=== PATIENT | male | born 1950 | race Hispanic/Latino ===

== ENCOUNTER 2018-06-15 10:53 | Emergency (ER) | payer MEDICAID, OTHER ==
[2018-06-15] MEDS ORDERED: HYDROCODONE/ACETAMINOPHEN 10/325 MG TAB ONE (11:28)
[2018-06-15] MEDS ORDERED: KETOROLAC TROMETHAMINE 30MG/ML ONE (11:29)
== END 2018-06-15 13:20 | disposition home or self-care (01) ==
LOC: EDH 10:53
DX: S20.212A Contusion of left front wall of thorax, initial encounter (principal); S09.90XA Unspecified injury of head, initial encounter; E78.5 Hyperlipidemia, unspecified; I10 Essential (primary) hypertension; Z88.0 Allergy status to penicillin; Z87.891 Personal history of nicotine dependence; W06.XXXA Fall from bed, initial encounter; Y93.89 Activity, other specified; Y92.89 Other specified places as the place of occurrence of the external cause; Y99.8 Other external cause status
CPT/HCPCS: 70450; 71250; 99284; J1885

== ENCOUNTER 2018-11-16 22:00 | Emergency (ER) | payer OTHER ==
[2018-11-16] MEDS ORDERED: METHYLPREDNISOLONE SOD SUCC 40MG/ML 1ML ONE (22:42)
[2018-11-16] MEDS ORDERED: DiphenhydrAMINE HCL 50 MG/ML VIAL ONE (22:43)
[2018-11-16] MEDS ORDERED: FAMOTIDINE/PF 20 MG/2 ML VIAL IV ONE (22:43)
[2018-11-16 22:48] LABS: BASOPHILS % (AUTO) 0.3 % (0.0-5.0); EOSINOPHILS % (AUTO) 1.5 % (0.0-8.0); HEMATOCRIT 41.3 % (42-54); LYMPHOCYTES % (AUTO) 8.4 % (21.0-51.0); MEAN CORPUSCULAR HEMOGLOBIN 36.4 pg (27.0-33.0); MEAN CORPUSCULAR VOLUME 110.1 fL (79-99); MONOCYTES % (AUTO) 4.6 % (3.0-13.0); NEUTROPHILS % (AUTO) 85.2 % (40.0-77.0); NUCLEATED RED BLOOD CELLS 0.1 % (0.0-0.19); RED BLOOD CELL COUNT(AUTO) 3.76 MIL/uL (4.50-6.20); RED CELL DISTRIBUTION WIDTH 13.8 % (11.0-15.5); WHITE BLOOD COUNT (AUTO) 10.2 K/uL (4.8-10.8)
[2018-11-16 22:56] LABS: CREATININE 0.8 mg/dL (0.5-1.5); POTASSIUM 3.6 mmol/L (3.5-5.1)
[2018-11-16 22:57] LABS: APPEARANCE,URINE Clear (CLEAR); BILIRUBIN,URINE Negative (NEGATIVE); COLOR,URINE Yellow (YELLOW); GLUCOSE, URINE (UA) Negative (NEGATIVE); KETONES,URINE Negative (NEGATIVE); LEUKOCYTE ESTERASE ,URINE Negative (NEGATIVE); NITRATE,URINE Negative (NEGATIVE); OCCULT BLOOD,URINE Trace (NEGATIVE); PROTEIN,URINE Negative (NEGATIVE); UROBILINOGEN,URINE 0.2 mg/dL (0.2-1.0)
[2018-11-16 23:00] LABS: PLATELET COUNT (AUTO) 731 K/uL (130-400)
[2018-11-16 23:16] LABS: BACTERIA,URINE None Seen /HPF (None Seen); RBC,URINE None Seen /HPF (0-1); WBC,URINE None Seen /HPF (0-1)
== END 2018-11-17 01:07 | disposition home or self-care (01) ==
LOC: EDH 22:00
DX: T78.49XA Other allergy, initial encounter (principal); D69.1 Qualitative platelet defects; I10 Essential (primary) hypertension; Z88.0 Allergy status to penicillin; Z90.49 Acquired absence of other specified parts of digestive tract; X58.XXXA Exposure to other specified factors, initial encounter
CPT/HCPCS: 36415; 80048; 81001; 85025; 87804 ×2; 96374; 96375; 99283; J1200; J2920; J3490

== ENCOUNTER 2019-01-02 08:53 | Emergency (ER) | payer OTHER ==
[2019-01-02] MEDS ORDERED: KETOROLAC TROMETHAMINE 60 MG/2 ML VIAL ONE (09:21)
[2019-01-02] MEDS ORDERED: MORPHINE SULFATE 4 MG/1ML SYG ONE ×2 (09:22→10:31)
== END 2019-01-02 10:49 | disposition home or self-care (01) ==
LOC: EDH 08:53
DX: M54.30 Sciatica, unspecified side (principal); I10 Essential (primary) hypertension; Z90.49 Acquired absence of other specified parts of digestive tract; Z88.0 Allergy status to penicillin; Z87.891 Personal history of nicotine dependence
CPT/HCPCS: 96372 ×3; 99284; J1885; J2270 ×2

== ENCOUNTER 2024-04-13 00:28 | Inpatient (IN) | payer OTHER ==
[~2024-04-13] VITALS: Ht 170.2 cm; Wt 78.0 kg
[2024-04-13] VITALS (7 sets, daily range): BP systolic 126–131; BP diastolic 72–73; PULSE 76–94; RESP 18–24; O2SAT 98
[~2024-04-13 00:28] MED LIST: AEC81 PO; AMLO5TAB4 PO; HYDR500C2 PO
[2024-04-13 00:57] LABS: BASOPHILS # (AUTO) 0.01 K/uL (0.00-0.20); BASOPHILS % (AUTO) 0.2 % (0.0-5.0); EOSINOPHILS # (AUTO) 0.03 K/uL (0.00-0.70); EOSINOPHILS % (AUTO) 0.6 % (0.0-8.0); IMMATURE GRANULOCYTE ABSOLUTE 0.06 K/uL (0-1); LYMPHOCYTES # (AUTO) 0.4 K/uL (1.0-4.8); LYMPHOCYTES % (AUTO) 7.4 % (21.0-51.0); MEAN CORPUSCULAR HEMOGLOBIN 42.1 pg (27.0-33.0); MEAN CORPUSCULAR HGB CONC 33.9 g/dL (32.0-36.0); MEAN CORPUSCULAR VOLUME 124.1 fL (79-99); MONOCYTES # (AUTO) 0.4 K/uL (0.1-1.0); MONOCYTES % (AUTO) 8.1 % (3.0-13.0); NEUTROPHILS # (AUTO) 4.5 K/uL (1.8-7.7); NEUTROPHILS % (AUTO) 82.6 % (40.0-77.0); PLATELET COUNT (AUTO) 483 K/uL (130-400); RED CELL DISTRIBUTION WIDTH 15.8 % (11.0-15.5); WHITE BLOOD COUNT (AUTO) 5.4 K/uL (4.8-10.8)
[2024-04-13 01:08] LABS: APPEARANCE,URINE CLOUDY (CLEAR); BILIRUBIN,URINE NEGATIVE (NEGATIVE); COLOR,URINE YELLOW (YELLOW); GLUCOSE, URINE (UA) NEGATIVE (NEGATIVE); KETONES,URINE NEGATIVE (NEGATIVE); LEUKOCYTE ESTERASE ,URINE NEGATIVE Leu/uL (NEGATIVE); NITRATE,URINE NEGATIVE (NEGATIVE); OCCULT BLOOD,URINE NEGATIVE (NEGATIVE); PROTEIN,URINE 10 mg/dL (NEGATIVE); UROBILINOGEN,URINE 0.2 mg/dL (0.2-1.0)
[2024-04-13 01:09] LABS: ADD UA MICROSCOPIC YES
[2024-04-13 01:12] LABS: BACTERIA,URINE FEW /HPF (None Seen); MUCUS,URINE RARE LPF (None Seen); SQUAMOUS EPITHELIAL CELL,UR RARE /HPF (0-2)
[2024-04-13 01:15] LABS: CREATININE 0.8 mg/dL (0.5-1.3); POTASSIUM 4.3 mmol/L (3.5-5.1)
[2024-04-13 01:17] LABS: INR 1.06 (0.85-1.15); PROTHROMBIN TIME 11.4 SEC (9.6-11.6)
[2024-04-13 01:18] LABS: PARTIAL THROMBOPLASTIN TIME 25.3 SEC (26.3-35.5)
[2024-04-13 01:19] LABS: ALBUMIN 3.1 g/dL (3.5-5.0); BILIRUBIN,TOTAL 1.3 mg/dL (0.2-1.0); TOTAL PROTEIN, SERUM 7.7 g/dL (6.0-8.3)
[2024-04-13] MEDS: 0.9%NACL 1000ML 1,000 ML IV ONE (01:29)
[2024-04-13] MEDS: AZTREONAM 1 GM VIAL IVPB SCH (01:29)
[2024-04-13] MEDS: IpraTROPium/alBUTERol SULFATE 3 ML SOLUTION IH ONE ×2 (01:59→02:13)
[2024-04-13 02:21] LABS: SARS-CoV-2, RNA, NAAT NEGATIVE SARS CoV-2 (NEGATIVE)
[2024-04-13] MEDS: DEXAMETHASONE SOD PHOSPHATE 4 MG/ML 1ML VIAL IVP ONE (02:21)
[2024-04-13 02:27] LABS: INFLUENZA TYPE A Negative For Type A (NEGATIVE); INFLUENZA TYPE B Negative For Type B (NEGATIVE)
[2024-04-13] MEDS ORDERED: cefTRIAXone 1G VIAL IVPB SCH (02:30)
[2024-04-13] MEDS ORDERED: DEXTROSE 50%-WATER 50 ML DISP.SYRIN IV PRN (02:30)
[2024-04-13] MEDS ORDERED: acetaMINOPHEN 325 MG TAB PO PRN ×2 (02:30)
[2024-04-13] MEDS ORDERED: ONDANSETRON 4MG INJ IVP PRN (02:30)
[2024-04-13] MEDS ORDERED: GLUCAGON 1MG KIT 1 MG ML IM PRN (02:30)
[2024-04-13 02:48] LABS: ABG BASE EXCESS -1.4 mmol/L (-2.0-3.0); ABG HCO3 22.4 mmol/L (21.0-28.0); ABG OXYGEN SATURATION 92.8 % (95.0-99.0); ABG PCO2 35 mmHg (35-48); ABG PH 7.421 (7.35-7.450); PO2, ARTERIAL BG 63.2 mmHg (83.0-108.0); VENT MODE, BG ROOMAIR (ROOM AIR)
[2024-04-13] MEDS: SOLU-MEDROL 125MG VIAL IVP ONE (02:59)
[2024-04-13] MEDS ORDERED: RACEPINEPHRINE HCL 2.25% 0.5 ML NEB SOLN NEB SCH (03:00)
[2024-04-13] MEDS: BUDESONIDE 0.5 MG/2 ML INH IH STA (03:04)
[2024-04-13 04:32] LABS: HEMATOCRIT 35.6 % (42-54); MEAN CORPUSCULAR HGB CONC 33.1 g/dL (32.0-36.0); MEAN CORPUSCULAR VOLUME 126.7 fL (79-99); RED BLOOD CELL COUNT(AUTO) 2.81 MIL/uL (4.50-6.20); RED CELL DISTRIBUTION WIDTH 15.8 % (11.0-15.5); WHITE BLOOD COUNT (AUTO) 4.8 K/uL (4.8-10.8)
[2024-04-13] MEDS: MORPHINE 2 MG SYG IVP ONE (04:36)
[2024-04-13 04:44] LABS: CREATININE 0.7 mg/dL (0.5-1.3); MAGNESIUM 2.1 mg/dL (1.80-2.40)
[2024-04-13 04:48] LABS: HEMOGLOBIN A1C 5.3 % (4.0-6.0)
[2024-04-13] MEDS ORDERED: HYDR-4064 PO (05:02)
[2024-04-13] MEDS ORDERED: GLIP5TAB15 PO (05:02)
[2024-04-13] MEDS ORDERED: BUDESONIDE 0.5 MG/2 ML INH IH ONE (06:00)
[2024-04-13] MEDS: IpraTROPium/alBUTERol SULFATE 3 ML SOLUTION IH PRN (07:19)
[2024-04-13] MEDS: SODIUM CHLORIDE 3% FOR INHALATION 4 ML/AMP VIAL.NEB IH ONE (07:19)
[2024-04-13] MEDS: INSULIN LISPRO 100 UNIT/ML 3ML SQ SCH (08:14)
[2024-04-13] MEDS: DOXYCYCLINE HYCLATE 100 MG TABLET PO SCH (09:28)
[2024-04-13] MEDS: cefTRIAXone 1G VIAL IVPB SCH (09:28)
[2024-04-13] MEDS: ENOXAPARIN SODIUM 30 MG/0.3 ML SQ SCH (09:29)
[2024-04-13] MEDS: SOLU-MEDROL 40MG VIAL IVP ONE (09:29)
[2024-04-13] MEDS ORDERED: IOHEXOL 350 MG/ML 100ML INFUS..BTL IV ONE (13:59)
[2024-04-13] MEDS ORDERED: IOHEXOL-350 75 ML VIAL IV ONE (13:59)
[2024-04-13] MEDS: LOPERAMIDE HCL 2 MG CAP PO ONE ×2 (14:28)
[2024-04-14] VITALS (15 sets, daily range): BP systolic 125–154; BP diastolic 67–90; PULSE 80–99; RESP 17–22; O2SAT 97–99
[2024-04-14] MEDS: HYDROXYUREA 500 MG CAP PO SCH (14:40)
[2024-04-14] MEDS: BUDESONIDE 0.25 MG/2 ML INH IH SCH (21:06)
[2024-04-14 21:09] LABS: ABG BASE EXCESS 3.1 mmol/L (-2.0-3.0); ABG HCO3 27.2 mmol/L (21.0-28.0); ABG OXYGEN SATURATION 96.8 % (95.0-99.0); ABG PCO2 40 mmHg (35-48); ABG PH 7.453 (7.35-7.450); DEVICE COMMENT 2LNC; PO2, ARTERIAL BG 84.6 mmHg (83.0-108.0)
[2024-04-14] MEDS: IpraTROPium 0.5 MG/2.5 ML INH IH SCH (22:54)
[2024-04-14] MEDS: ALBUTEROL 0.083% 2.5 MG/3 ML INH IH SCH (22:54)
[2024-04-15] VITALS (14 sets, daily range): BP systolic 118–145; BP diastolic 62–97; PULSE 92–105; RESP 18–22; O2SAT 97–100
[2024-04-15 04:42] LABS: HEMATOCRIT 34.7 % (42-54); MEAN CORPUSCULAR HEMOGLOBIN 41.4 pg (27.0-33.0); MEAN CORPUSCULAR HGB CONC 32.6 g/dL (32.0-36.0); MEAN CORPUSCULAR VOLUME 127.1 fL (79-99); RED BLOOD CELL COUNT(AUTO) 2.73 MIL/uL (4.50-6.20); RED CELL DISTRIBUTION WIDTH 15.8 % (11.0-15.5); WHITE BLOOD COUNT (AUTO) 4.1 K/uL (4.8-10.8)
[2024-04-15 04:56] LABS: CREATININE 0.6 mg/dL (0.5-1.3); MAGNESIUM 1.9 mg/dL (1.80-2.40); POTASSIUM 3.7 mmol/L (3.5-5.1)
[2024-04-15] MEDS: ASPIRIN 81 MG EC TAB PO SCH (09:40)
[2024-04-15] MEDS: amLODIPine 5 MG TAB PO SCH (09:41)
[2024-04-15] MEDS: GLIPIZIDE 5 MG TABLET PO SCH (09:41)
[2024-04-15] MEDS: IpraTROPium/alBUTERol SULFATE 3 ML SOLUTION IH ONE (11:13)
[2024-04-15] MEDS ORDERED: SOLU-MEDROL 40MG VIAL IVP SCH ×2 (11:30→21:00)
[2024-04-15] MEDS: SOLU-MEDROL 40MG VIAL IVP SCH (14:40)
[2024-04-16] VITALS (35 sets, daily range): BP systolic 105–174; BP diastolic 65–92; PULSE 64–110; RESP 16–25; O2SAT 99–100
[2024-04-16 04:35] LABS: HEMATOCRIT 33.5 % (42-54); MEAN CORPUSCULAR HEMOGLOBIN 42.5 pg (27.0-33.0); MEAN CORPUSCULAR HGB CONC 33.7 g/dL (32.0-36.0); MEAN CORPUSCULAR VOLUME 125.9 fL (79-99); RED BLOOD CELL COUNT(AUTO) 2.66 MIL/uL (4.50-6.20); RED CELL DISTRIBUTION WIDTH 15.4 % (11.0-15.5); WHITE BLOOD COUNT (AUTO) 4.8 K/uL (4.8-10.8)
[2024-04-16 04:43] LABS: CREATININE 0.7 mg/dL (0.5-1.3); MAGNESIUM 1.9 mg/dL (1.80-2.40); POTASSIUM 3.6 mmol/L (3.5-5.1)
[2024-04-16] MEDS ORDERED: ONDANSETRON 4MG INJ ONE (11:55)
[2024-04-16] MEDS ORDERED: MIDAZOLAM HCL 1 MG/ML 2ML VIAL ONE (11:55)
[2024-04-16] MEDS ORDERED: DEXAMETHASONE SOD PHOSPHATE 10MG/ML 1ML VIAL ONE (11:55)
[2024-04-16] MEDS ORDERED: LIDOCAINE PF 100MG/5ML (2%) SYRINGE 5ML ONE (11:55)
[2024-04-16] MEDS ORDERED: ROCURONIUM BROMIDE 10MG/1ML 5ML VL ONE (11:56)
[2024-04-16] MEDS ORDERED: GLYCOPYRROLATE 0.2 MG/ML 5 ML VIAL ONE (11:56)
[2024-04-16] MEDS ORDERED: NEOSTIGMINE METHYLSULFATE 1MG/ML IV ONE (11:56)
[2024-04-16] MEDS ORDERED: SUCCINYLCHOLINE CHLORIDE 20 MG/ML 10 ML VIAL ONE (11:56)
[2024-04-16] MEDS ORDERED: PROPOFOL 10 MG/ML 20ML VIAL IV ONE (11:56)
[2024-04-16] MEDS ORDERED: FENTANYL CITRATE PF 50 MCG/1 ML 2ML VIAL ONE (12:02)
[2024-04-17] VITALS (15 sets, daily range): BP systolic 114–138; BP diastolic 68–81; PULSE 83–105; RESP 17–22; O2SAT 95–100
[2024-04-17 04:40] LABS: HEMATOCRIT 32.9 % (42-54); MEAN CORPUSCULAR HEMOGLOBIN 41.4 pg (27.0-33.0); MEAN CORPUSCULAR HGB CONC 32.8 g/dL (32.0-36.0); MEAN CORPUSCULAR VOLUME 126.1 fL (79-99); RED BLOOD CELL COUNT(AUTO) 2.61 MIL/uL (4.50-6.20); RED CELL DISTRIBUTION WIDTH 14.9 % (11.0-15.5); WHITE BLOOD COUNT (AUTO) 6.6 K/uL (4.8-10.8)
[2024-04-17 04:47] LABS: CREATININE 0.7 mg/dL (0.5-1.3); MAGNESIUM 1.8 mg/dL (1.80-2.40)
[2024-04-17] MEDS: MAGNESIUM 2GM PREMIX 50ML 50 ML IV PRN (11:28)
[2024-04-18] VITALS (10 sets, daily range): BP systolic 124–142; BP diastolic 72–88; PULSE 85–94; RESP 15–22; O2SAT 98
[2024-04-19] VITALS (12 sets, daily range): BP systolic 118–149; BP diastolic 71–85; PULSE 92–116; RESP 18–20; O2SAT 95–99
[2024-04-19 04:48] LABS: HEMATOCRIT 34.4 % (42-54); MEAN CORPUSCULAR HEMOGLOBIN 41.7 pg (27.0-33.0); MEAN CORPUSCULAR HGB CONC 33.4 g/dL (32.0-36.0); MEAN CORPUSCULAR VOLUME 124.6 fL (79-99); RED BLOOD CELL COUNT(AUTO) 2.76 MIL/uL (4.50-6.20); RED CELL DISTRIBUTION WIDTH 14.5 % (11.0-15.5); WHITE BLOOD COUNT (AUTO) 7.6 K/uL (4.8-10.8)
[2024-04-19 04:54] LABS: CREATININE 0.7 mg/dL (0.5-1.3); MAGNESIUM 1.7 mg/dL (1.80-2.40); POTASSIUM 4.1 mmol/L (3.5-5.1)
[2024-04-19] MEDS: HYDROXYUREA 500 MG CAP PO SCH (18:08)
[2024-04-20 04:00] VITALS: BP 128/75; PULSE 84; RESP 18
[2024-04-20 05:53] LABS: HEMATOCRIT 34.4 % (42-54); MEAN CORPUSCULAR HEMOGLOBIN 42.2 pg (27.0-33.0); MEAN CORPUSCULAR VOLUME 124.2 fL (79-99); PLATELET COUNT (AUTO) 365 K/uL (130-400); RED BLOOD CELL COUNT(AUTO) 2.77 MIL/uL (4.50-6.20); RED CELL DISTRIBUTION WIDTH 14.2 % (11.0-15.5); WHITE BLOOD COUNT (AUTO) 9.9 K/uL (4.8-10.8)
[2024-04-20 06:25] LABS: CREATININE 0.8 mg/dL (0.5-1.3); MAGNESIUM 1.8 mg/dL (1.80-2.40); POTASSIUM 4.1 mmol/L (3.5-5.1)
[2024-04-20 06:42] VITALS: PULSE 102; RESP 18
[2024-04-20 08:00] VITALS: BP 133/80; PULSE 110; RESP 15; O2SAT 96
[2024-04-20 08:15] VITALS: PULSE 99; RESP 18; O2SAT 100
[2024-04-20] MEDS: ENOXAPARIN SODIUM 30 MG/0.3 ML SQ SCH (09:00)
[2024-04-20] MEDS: ASPIRIN 81 MG EC TAB PO SCH (09:02)
[2024-04-20 12:00] VITALS: BP 122/79; PULSE 91; RESP 14
[2024-04-21 02:09] LABS: HERPES SIMPLEX VIRUS-1 BY PCR Negative (Negative); HERPES SIMPLEX VIRUS-2 BY PCR Negative (Negative)
== END 2024-04-20 15:30 | disposition home or self-care (01) | DRG 193 ==
LOC: EDH 00:28 → EDHIP 02:24 → 4CH 19:56
PROVIDERS: ADMIT Internal Medicine Infectious Disease; ATTEND Internal Medicine Infectious Disease
PROC: 5A09357 Assistance with Respiratory Ventilation, Less than 24 Consecutive Hours, Continuous Positive Airway Pressure (ICD-10-PCS; 2024-04-13)
PROC: 5A09357 Assistance with Respiratory Ventilation, Less than 24 Consecutive Hours, Continuous Positive Airway Pressure (ICD-10-PCS; 2024-04-15)
PROC: 0BB28ZX Excision of Carina, Via Natural or Artificial Opening Endoscopic, Diagnostic (ICD-10-PCS; principal; 2024-04-16)
PROC: 0B978ZX Drainage of Left Main Bronchus, Via Natural or Artificial Opening Endoscopic, Diagnostic (ICD-10-PCS; 2024-04-16)
PROC: 0BD78ZX Extraction of Left Main Bronchus, Via Natural or Artificial Opening Endoscopic, Diagnostic (ICD-10-PCS; 2024-04-16)
PROC: 0BD38ZX Extraction of Right Main Bronchus, Via Natural or Artificial Opening Endoscopic, Diagnostic (ICD-10-PCS; 2024-04-16)
DX: J18.9 Pneumonia, unspecified organism (principal); J96.01 Acute respiratory failure with hypoxia; J98.11 Atelectasis; J90 Pleural effusion, not elsewhere classified; C78.02 Secondary malignant neoplasm of left lung; D15.2 Benign neoplasm of mediastinum; J98.4 Other disorders of lung; I25.10 Atherosclerotic heart disease of native coronary artery without angina pectoris; K21.9 Gastro-esophageal reflux disease without esophagitis; I10 Essential (primary) hypertension; G47.33 Obstructive sleep apnea (adult) (pediatric); E66.9 Obesity, unspecified; R53.81 Other malaise; Z90.49 Acquired absence of other specified parts of digestive tract; Z68.26 Body mass index [BMI] 26.0-26.9, adult; D45 Polycythemia vera; E11.9 Type 2 diabetes mellitus without complications; G89.29 Other chronic pain; R59.0 Localized enlarged lymph nodes; Z88.0 Allergy status to penicillin; Z83.3 Family history of diabetes mellitus; Z79.899 Other long term (current) drug therapy
CPT/HCPCS: 31623; 31624; 31625; 36415; 36600; 71045; 71270; 74176; 80048; 80053; 81001; 82803; 82948; 83036; 83605; 83690; 83735; 83880; 84145; 84484; 85025; 85027; 85610; 85730; 87040; 87071; 87086; 87101; 87116; 87186; 87205; 87206; 87252; 87529; 87635; 87804; 88112; 88305; 93005; 94640; 94660; 94760; 96375; 96376; G0378; J0330; J0696; J1100; J1650; J2001; J2250; J2270; J2405; J2704; J2710; J2919; J3010; J3475; J3490; J7030; Q9967; A4215; A4216; A4221; A4222; A4223; A4620; A4657; A7002